=== PATIENT | female | born 1950 | race Hispanic/Latino ===

== ENCOUNTER 2019-01-09 21:51 | Emergency (ER) | payer MEDICARE ==
[~2019-01-09] VITALS: Ht 142.2 cm; Wt 75.3 kg
--- OUTSIDE RECORDS SUMMARY | 2019-01-09 21:53 | XMS REPORT ---
Author Author [facility] Address Unknown Phone Unavailable Care Team Providers Care Wildlife Removal Specialist Name Role Phone Unavailable Unavailable Payers Payer Name Policy Type Policy Number Effective Date Expiration Date Problems This patient has no known problems. Allergies, Adverse Reactions, Alerts Allergy Name Allergy Type Status Severity Reaction(s) Onset Date Inactive Date Treating Clinician Comments hydrocodone bit DA Active SV 2010-04-08 00:00:00 acetaminophen DA Active SV 2010-04-08 00:00:00 Medications This patient has no known medications. Results Test Description Test Time Test Comments Text Results Atomic Results Result Comments GLUBED 2018-12-20 23:06:00 GLUBED (test code=GLUBED) 179 mg/dL 74-106 Performed by certified collar shaper operator at [facility] COMPREHENSIVE METABOLIC [id number] 21:11:00* Test Item Value Reference Range Comments SODIUM (test code=NA) 136 mmol/L 136-145 POTASSIUM (test code=K) 3.8 mmol/L 3.5-5.1 CHLORIDE (test code=CL) 99.0 mmol/L 98-107 CARBON DIOXIDE (test code=CO2) 24.0 mmol/L 21-32 ANION GAP (test code=GAP) 16.8 10-20 GLUCOSE (test code=GLU) 231 mg/dL 74-106 BLOOD UREA NITROGEN (test code=BUN) 25 mg/dL 7-18 GLOMERULAR FILTRATION RATE (test code=GFR) 49 mL/min >=60 Estimated GFR by using Modified MDRD formula.Chronic kidney disease is defined as either kidney damageor GFR <60 mL/min/1.73 m2 for >3 months. CREATININE (test code=CREAT) 1.10 mg/dL 0.55-1.02 Note change in reference range due to change in reagent. BUN/CREATININE RATIO (test code=BUN/CREA) 22.1 10-20 TOTAL PROTEIN (test code=PROT) 7.4 gram/dL 6.4-8.2 ALBUMIN (test code=ALB) 3.3 g/dL 3.4-5.0 GLOBULIN (test code=GLOB) 4.1 gram/dL 2.7-4.2 ALBUMIN/GLOBULIN RATIO (test code=A/G) 0.8 0.75-1.50 CALCIUM (test code=CA) 9.4 mg/dL 8.5-10.1 BILIRUBIN TOTAL (test code=BILT) 0.40 mg/dL 0.0-1.0 SGOT/AST (test code=AST) 24 IUnit/L 15-37 SGPT/ALT (test code=ALT) 20 IUnit/L 12-78 ALKALINE PHOSPHATASE TOTAL (test code=ALKP) 93 IUnit/L 45-117 Note change in reference range due to change in reagent. [id number] 21:11:00* Test Item Value Reference Range Comments LIPASE (test code=LIP) 304 U/L 73.0-393.0 COMPREHENSIVE METABOLIC [id number] 20:55:00* Test Item Value Reference Range Comments SODIUM (test code=NA) 136 mmol/L 136-145 POTASSIUM (test code=K) 3.8 mmol/L 3.5-5.1 CHLORIDE (test code=CL) 99.0 mmol/L 98-107 CARBON DIOXIDE (test code=CO2) mmol/L 21-32 ANION GAP (test code=GAP) 10-20 GLUCOSE (test code=GLU) mg/dL 74-106 BLOOD UREA NITROGEN (test code=BUN) mg/dL 7-18 GLOMERULAR FILTRATION RATE (test code=GFR) mL/min >=60 CREATININE (test code=CREAT) mg/dL 0.55-1.02 BUN/CREATININE RATIO (test code=BUN/CREA) 10-20 TOTAL PROTEIN (test code=PROT) gram/dL 6.4-8.2 ALBUMIN (test code=ALB) g/dL 3.4-5.0 GLOBULIN (test code=GLOB) gram/dL 2.7-4.2 ALBUMIN/GLOBULIN RATIO (test code=A/G) 0.75-1.50 CALCIUM (test code=CA) mg/dL 8.5-10.1 BILIRUBIN TOTAL (test code=BILT) mg/dL 0.0-1.0 SGOT/AST (test code=AST) IUnit/L 15-37 SGPT/ALT (test code=ALT) IUnit/L 12-78 ALKALINE PHOSPHATASE TOTAL (test code=ALKP) IUnit/L 45-117 [id number] 20:55:00* Test Item Value Reference Range Comments LIPASE (test code=LIP) U/L 73.0-393.0 CBC W/AUTO [id number] 20:53:00* Test Item Value Reference Range Comments WHITE BLOOD CELL (test code=WBC) 14.5 K/mm3 4.5-12.5 RED BLOOD CELL (test code=RBC) 4.48 mill/mm3 3.7-5.2 HEMOGLOBIN (test code=HGB) 10.9 gram/dL 11.5-15.5 HEMATOCRIT (test code=HCT) 35.7 % 36.0-46.0 MEAN CELL VOLUME (test code=MCV) 79.7 fL 80-98 MEAN CELL HGB (test code=MCH) 24.3 picogram 27.0-33.0 MEAN CELL HGB CONCETRATION (test code=MCHC) 30.5 gram/dL 33.0-36.0 RED CELL DISTRIBUTION WIDTH (test code=RDW) 14.3 % 11.6-16.2 RED CELL DISTRIBUTION WIDTH SD (test code=RDW-SD) 41.0 fL 37.0-51.0 PLATELET COUNT (test code=PLT) 163 K/mm3 150-450 MEAN PLATELET VOLUME (test code=MPV) 10.8 fL 6.7-11.0 NEUTROPHIL % (test code=NT%) 85.5 % 39.0-69.0 IMMATURE GRANULOCYTE % (test code=IG%) 2.2 % 0.0-5.0 LYMPHOCYTE % (test code=LY%) 8.4 % 25.0-55.0 MONOCYTE % (test code=MO%) 2.8 % 0.0-10.0 EOSINOPHIL % (test code=EO%) 0.7 % 0.0-5.0 BASOPHIL % (test code=BA%) 0.4 % 0.0-1.0 NUCLEATED RBC % (test code=NRBC%) 0.0 % 0-0 NEUTROPHIL # (test code=NT#) 12.36 K/mm3 1.8-7.7 IMMATURE GRANULOCYTE # (test code=IG#) 0.32 x10 3/uL 0-0.03 LYMPHOCYTE # (test code=LY#) 1.22 K/mm3 1.0-5.0 MONOCYTE # (test code=MO#) 0.41 K/mm3 0-0.8 EOSINOPHIL # (test code=EO#) 0.10 K/mm3 0.0-0.5 BASOPHIL # (test code=BA#) 0.06 K/mm3 0.0-0.2 NUCLEATED RBC # (test code=NRBC#) 0.00 K/mm3 0.0-0.1 MANUAL DIFF REQUIRED (test code=MDIFF) NO, ONLY SCAN NEEDED DIFFERENTIAL [id number] 20:53:00* Test Item Value Reference Range Comments STAIN ACCEPTABILITY (test code=STN ACCEPTABLE) STAIN ACCEPTABLE POIKILOCYTOSIS (test code=POIK) 1+ ANISOCYTOSIS (test code=ANISO) 1+ MICROCYTOSIS (test code=MICR) 1+ PLATELET ESTIMATE (test code=PLTEST) ADEQUATE PLATELET MORPHOLOGY (test code=PLTMORPH) NORMAL [id number] 20:42:00* Test Item Value Reference Range Comments GLUBED (test code=GLUBED) 245 mg/dL 74-106 Performed by certified collar shaper operator at [facility] - XR CHEST 1 [id number] 20:40:00 FAX: Shanna Colvin [phone] [place]: B St: PRE Name: BERNIE LAU [facility] : [birth year] Age/S: 68/F Lety Giron Unit #: [id number] Loc: [place], [place] [address] Phys: Shanna Kelley MD Acct: [id number] Dis Date: Status: PRE ER PHONE #: [phone] Exam Date: 12/20/20182034 FAX #: [phone] Reason: fall, on plavix EXAMS: CPT CODE: [id number] XR CHEST 1 V [id number] EXAM: Chest x-ray, one view; INFORMATION: Status post fall, patient is on Plavix; FIND INGS: The heart is slightly enlarged. Lungs are clear; no infiltrate s, no edema; no contusion, no effusions; no pneumothorax. Aortic louisa cifications. IMPRESSION: 1. No acute cardiothoracic abno rmalities. 2. Mild cardiomegaly. Electronically Sig stacy by Kayley Moran on 12/20/2018 at 2039 Reported and signed by: Dick Moran M.D. CC: Shanna Kelley MD Technologist: CHRISSY ANDRADE RT; PATRICK VILLAREAL RT(R) Trnscrd Date/Time/By: 12/20/2018 (2039) : By: KarissaGRJenise Orig Print D/T: S: 0 12/20/2018 (2042) PAGE 1 Signed Re port CBC W/AUTO [id number] 20:36:00* Test Item Value Reference Range Comments WHITE BLOOD CELL (test code=WBC) 14.5 K/mm3 4.5-12.5 RED BLOOD CELL (test code=RBC) 4.48 mill/mm3 3.7-5.2 HEMOGLOBIN (test code=HGB) 10.9 gram/dL 11.5-15.5 HEMATOCRIT (test code=HCT) 35.7 % 36.0-46.0 MEAN CELL VOLUME (test code=MCV) 79.7 fL 80-98 MEAN CELL HGB (test code=MCH) 24.3 picogram 27.0-33.0 MEAN CELL HGB CONCETRATION (test code=MCHC) 30.5 gram/dL 33.0-36.0 RED CELL DISTRIBUTION WIDTH (test code=RDW) 14.3 % 11.6-16.2 RED CELL DISTRIBUTION WIDTH SD (test code=RDW-SD) 41.0 fL 37.0-51.0 PLATELET COUNT (test code=PLT) 163 K/mm3 150-450 MEAN PLATELET VOLUME (test code=MPV) 10.8 fL 6.7-11.0 NEUTROPHIL % (test code=NT%) 85.5 % 39.0-69.0 IMMATURE GRANULOCYTE % (test code=IG%) 2.2 % 0.0-5.0 LYMPHOCYTE % (test code=LY%) 8.4 % 25.0-55.0 MONOCYTE % (test code=MO%) 2.8 % 0.0-10.0 EOSINOPHIL % (test code=EO%) 0.7 % 0.0-5.0 BASOPHIL % (test code=BA%) 0.4 % 0.0-1.0 NUCLEATED RBC % (test code=NRBC%) 0.0 % 0-0 NEUTROPHIL # (test code=NT#) 12.36 K/mm3 1.8-7.7 IMMATURE GRANULOCYTE # (test code=IG#) 0.32 x10 3/uL 0-0.03 LYMPHOCYTE # (test code=LY#) 1.22 K/mm3 1.0-5.0 MONOCYTE # (test code=MO#) 0.41 K/mm3 0-0.8 EOSINOPHIL # (test code=EO#) 0.10 K/mm3 0.0-0.5 BASOPHIL # (test code=BA#) 0.06 K/mm3 0.0-0.2 NUCLEATED RBC # (test code=NRBC#) 0.00 K/mm3 0.0-0.1 MANUAL DIFF REQUIRED (test code=MDIFF) NO, ONLY SCAN NEEDED DIFFERENTIAL [id number] 20:36:00* Test Item Value Reference Range Comments STAIN ACCEPTABILITY (test code=STN ACCEPTABLE) CABOT RINGS (test code=CAB) MORPHOLOGY COMMENT (test code=MOC) PLATELET ESTIMATE (test code=PLTEST) PLATELET MORPHOLOGY (test code=PLTMORPH) CBC W/AUTO [id number] 20:36:00* Test Item Value Reference Range Comments WHITE BLOOD CELL (test code=WBC) 14.5 K/mm3 4.5-12.5 RED BLOOD CELL (test code=RBC) 4.48 mill/mm3 3.7-5.2 HEMOGLOBIN (test code=HGB) 10.9 gram/dL 11.5-15.5 HEMATOCRIT (test code=HCT) 35.7 % 36.0-46.0 MEAN CELL VOLUME (test code=MCV) 79.7 fL 80-98 MEAN CELL HGB (test code=MCH) 24.3 picogram 27.0-33.0 MEAN CELL HGB CONCETRATION (test code=MCHC) 30.5 gram/dL 33.0-36.0 RED CELL DISTRIBUTION WIDTH (test code=RDW) 14.3 % 11.6-16.2 RED CELL DISTRIBUTION WIDTH SD (test code=RDW-SD) 41.0 fL 37.0-51.0 PLATELET COUNT (test code=PLT) 163 K/mm3 150-450 MEAN PLATELET VOLUME (test code=MPV) 10.8 fL 6.7-11.0 NEUTROPHIL % (test code=NT%) 85.5 % 39.0-69.0 IMMATURE GRANULOCYTE % (test code=IG%) 2.2 % 0.0-5.0 LYMPHOCYTE % (test code=LY%) 8.4 % 25.0-55.0 MONOCYTE % (test code=MO%) 2.8 % 0.0-10.0 EOSINOPHIL % (test code=EO%) 0.7 % 0.0-5.0 BASOPHIL % (test code=BA%) 0.4 % 0.0-1.0 NUCLEATED RBC % (test code=NRBC%) 0.0 % 0-0 NEUTROPHIL # (test code=NT#) 12.36 K/mm3 1.8-7.7 IMMATURE GRANULOCYTE # (test code=IG#) 0.32 x10 3/uL 0-0.03 LYMPHOCYTE # (test code=LY#) 1.22 K/mm3 1.0-5.0 MONOCYTE # (test code=MO#) 0.41 K/mm3 0-0.8 EOSINOPHIL # (test code=EO#) 0.10 K/mm3 0.0-0.5 BASOPHIL # (test code=BA#) 0.06 K/mm3 0.0-0.2 NUCLEATED RBC # (test code=NRBC#) 0.00 K/mm3 0.0-0.1 MANUAL DIFF REQUIRED (test code=MDIFF) NO, ONLY SCAN NEEDED DIFFERENTIAL [id number] 20:36:00* Test Item Value Reference Range Comments STAIN ACCEPTABILITY (test code=STN ACCEPTABLE) MORPHOLOGY COMMENT (test code=MOC) PLATELET ESTIMATE (test code=PLTEST) PLATELET MORPHOLOGY (test code=PLTMORPH) CBC W/AUTO [id number] 20:36:00* Test Item Value Reference Range Comments WHITE BLOOD CELL (test code=WBC) 14.5 K/mm3 4.5-12.5 RED BLOOD CELL (test code=RBC) 4.48 mill/mm3 3.7-5.2 HEMOGLOBIN (test code=HGB) 10.9 gram/dL 11.5-15.5 HEMATOCRIT (test code=HCT) 35.7 % 36.0-46.0 MEAN CELL VOLUME (test code=MCV) 79.7 fL 80-98 MEAN CELL HGB (test code=MCH) 24.3 picogram 27.0-33.0 MEAN CELL HGB CONCETRATION (test code=MCHC) 30.5 gram/dL 33.0-36.0 RED CELL DISTRIBUTION WIDTH (test code=RDW) 14.3 % 11.6-16.2 RED CELL DISTRIBUTION WIDTH SD (test code=RDW-SD) 41.0 fL 37.0-51.0 PLATELET COUNT (test code=PLT) 163 K/mm3 150-450 MEAN PLATELET VOLUME (test code=MPV) 10.8 fL 6.7-11.0 NEUTROPHIL % (test code=NT%) 85.5 % 39.0-69.0 IMMATURE GRANULOCYTE % (test code=IG%) 2.2 % 0.0-5.0 LYMPHOCYTE % (test code=LY%) 8.4 % 25.0-55.0 MONOCYTE % (test code=MO%) 2.8 % 0.0-10.0 EOSINOPHIL % (test code=EO%) 0.7 % 0.0-5.0 BASOPHIL % (test code=BA%) 0.4 % 0.0-1.0 NUCLEATED RBC % (test code=NRBC%) 0.0 % 0-0 NEUTROPHIL # (test code=NT#) 12.36 K/mm3 1.8-7.7 IMMATURE GRANULOCYTE # (test code=IG#) 0.32 x10 3/uL 0-0.03 LYMPHOCYTE # (test code=LY#) 1.22 K/mm3 1.0-5.0 MONOCYTE # (test code=MO#) 0.41 K/mm3 0-0.8 EOSINOPHIL # (test code=EO#) 0.10 K/mm3 0.0-0.5 BASOPHIL # (test code=BA#) 0.06 K/mm3 0.0-0.2 NUCLEATED RBC # (test code=NRBC#) 0.00 K/mm3 0.0-0.1 MANUAL DIFF REQUIRED (test code=MDIFF) NO, ONLY SCAN NEEDED DIFFERENTIAL [id number] 20:36:00* Test Item Value Reference Range Comments STAIN ACCEPTABILITY (test code=STN ACCEPTABLE) MORPHOLOGY COMMENT (test code=MOC) PLATELET ESTIMATE (test code=PLTEST) PLATELET MORPHOLOGY (test code=PLTMORPH) CBC W/AUTO [id number] 20:36:00* Test Item Value Reference Range Comments WHITE BLOOD CELL (test code=WBC) 14.5 K/mm3 4.5-12.5 RED BLOOD CELL (test code=RBC) 4.48 mill/mm3 3.7-5.2 HEMOGLOBIN (test code=HGB) 10.9 gram/dL 11.5-15.5 HEMATOCRIT (test code=HCT) 35.7 % 36.0-46.0 MEAN CELL VOLUME (test code=MCV) 79.7 fL 80-98 MEAN CELL HGB (test code=MCH) 24.3 picogram 27.0-33.0 MEAN CELL HGB CONCETRATION (test code=MCHC) 30.5 gram/dL 33.0-36.0 RED CELL DISTRIBUTION WIDTH (test code=RDW) 14.3 % 11.6-16.2 RED CELL DISTRIBUTION WIDTH SD (test code=RDW-SD) 41.0 fL 37.0-51.0 PLATELET COUNT (test code=PLT) 163 K/mm3 150-450 MEAN PLATELET VOLUME (test code=MPV) 10.8 fL 6.7-11.0 NEUTROPHIL % (test code=NT%) 85.5 % 39.0-69.0 IMMATURE GRANULOCYTE % (test code=IG%) 2.2 % 0.0-5.0 LYMPHOCYTE % (test code=LY%) 8.4 % 25.0-55.0 MONOCYTE % (test code=MO%) 2.8 % 0.0-10.0 EOSINOPHIL % (test code=EO%) 0.7 % 0.0-5.0 BASOPHIL % (test code=BA%) 0.4 % 0.0-1.0 NUCLEATED RBC % (test code=NRBC%) 0.0 % 0-0 NEUTROPHIL # (test code=NT#) 12.36 K/mm3 1.8-7.7 IMMATURE GRANULOCYTE # (test code=IG#) 0.32 x10 3/uL 0-0.03 LYMPHOCYTE # (test code=LY#) 1.22 K/mm3 1.0-5.0 MONOCYTE # (test code=MO#) 0.41 K/mm3 0-0.8 EOSINOPHIL # (test code=EO#) 0.10 K/mm3 0.0-0.5 BASOPHIL # (test code=BA#) 0.06 K/mm3 0.0-0.2 NUCLEATED RBC # (test code=NRBC#) 0.00 K/mm3 0.0-0.1 MANUAL DIFF REQUIRED (test code=MDIFF) NO, ONLY SCAN NEEDED DIFFERENTIAL [id number] 20:36:00* Test Item Value Reference Range Comments STAIN ACCEPTABILITY (test code=STN ACCEPTABLE) CABOT RINGS (test code=CAB) MORPHOLOGY COMMENT (test code=MOC) PLATELET ESTIMATE (test code=PLTEST) PLATELET MORPHOLOGY (test code=PLTMORPH) - CT C-SPINE W/O [id number] 20:27:00 Name: BERNIE DALTON [facility] : 1950 Age/S: 68 / F [address] [facility] Unit #: [id number] Loc: [place] [address] Phys: Shanna Kelley MD Acct: [id number] Dis Date: Status: PRE ER PHONE #: [phone] Exam Date: 12/20/20182009 FAX #: [phone] Reason: fall, on plavix EXAMS: CPT CODE: [id number] CT C-SPINE W/O CONTRAST [id number] EXAM: CT of the cervical spine without contrast; INFORMATION: Status post fall; patient is on Plavix; TECHNIQUE AND FINDINGS: CT dose reduction protocol; 2.5 mm axial scans; sagittal and coronal reconstructions. There is good alignment of the cervical spine; vertebral bodies, the dens and posterior elements are intact; no evidence of fracture or dislocation. Normal height of intervertebral discs. Anterior osteophytes and calcifications and ossifications of the anterior longitudinal ligament in the mid cervical spine. Paravertebral soft tissues are unremarkable. C alcifications of carotid and vertebral arteries. IMPRESSION: 1. No evidence of acute osseous trauma. 2. Spondylosis. at 2026 Reported and signed by: Dick Moran M.D. CC: Shanna Kelley MD Technologist:HARPER BAILEY RT; Eliu, CTDI: DLP: Trnscb Date/Time: 12/20/2018 (2026) [email or web address] Orig Print D/T: S: 12/20/2018 (2029) CTDI: DLP: PAGE 1 Signed Report - CT HEAD/BRAIN W/O [id number] 20:24:00 Name: BERNIE DALTON [facility] : 1950 Age/S: 68 / F [address] [facility] Unit #: [id number] Loc: [place] [address] Phys: Shanna Kelley MD Acct: [id number] Dis Date: Status: PRE ER PHONE #: [phone] Exam Date: 12/20/20182009 FAX #: [phone] Reason: fall, on plavix EXAMS: CPT CODE: [id number] CT HEAD/BRAIN W/O CONT [id number] EXAM: CT of the head without contrast; INFORMATION: Status post fall; patient is on Plavix; TECHNIQUE AND FINDINGS: CT dose reduction protocol; 2.5 mm axial scans. There is no evidence of intra or extra-axial hemorrhage, mass lesions or midline shift. Periventricular and deep white matter hypodensities; otherwise, unremarkable maher/white matter differentiation. Ventricles are symmetric and are moderately dilated. Slightly prominent sulci and basilar cisterns. The calvarium is intact. Mucoid retention cyst in the left maxillary sinus. The remainder of the sinuses and mastoid air cells are well aerated. IMPRESSION: 1. No evidence of intracranial hemorrhage or acute territorial infarction. 2. Chronic ischemic white matter changes and mild atrophy. 3. No evidence of skull fracture. at 2023 Reported and signed by: Dick Moran M.D. CC: Shanna Kelley MD Technologist:HARPER BAILEY RT; Eliu, CTDI: DLP: Trnscb Date/Time: 12/20/2018 (2023) [email or web address] Orig Print D/T: S: 12/20/2018 (2026) CTDI: DLP: PAGE 1 Signed Report
--- NOTE | 2019-01-10 00:41 | NUR ---
PT LEFT FOOT/ANKLE MORE SWOLLEN AND INCREASED ERYTHEMA, WARM TO TOUCH. NOTIFIED DR. LOVE, VENOUS DOPPLER ORDERED, [employer] NOTIFIED
--- NOTE | 2019-01-10 01:45 | NUR ---
PT TRANSPORTED FOR VENOUS DOPPLER
--- NOTE | 2019-01-10 03:40 | NUR ---
patient has left swelling to ankle, warm to the touch, slight redness noted, doppler negative. besides this finding, all systems within normal limits
[2019-01-10] MEDS ORDERED: KETOROLAC TROMETHAMINE 60 MG/2 ML VIAL IM ONE (04:15)
[2019-01-10] MEDS ORDERED: CEPHALEXIN 500 MG CAP PO ONE (04:15)
--- NOTE | 2019-01-10 04:50 | Diagnostic Imaging Report ---
Exam: Left foot and ankle 3 views each History: Pain Comparison: None. Findings: No fracture or malalignment. Joint spaces preserved. Dorsal and plantar calcaneal enthesophytes. Vascular calcifications. Impression: No acute osseous abnormality Signed by: Dr. Everette Arechiga M.D. on 01/10/2019 4:47 AM
[2019-01-10] MEDS ORDERED: KETOROLAC TROMETHAMINE 30 MG/ML VIAL IM STA (05:00)
[2019-01-10] MEDS ORDERED: KETOROLAC TROMETHAMINE 30 MG/ML VIAL IV STA (05:24)
[2019-01-10] MEDS ORDERED: KEFLEX500 MG PO (05:58)
== END 2019-01-10 07:30 | disposition home or self-care (01) ==
LOC: ER 21:51
DX: M25.572 Pain in left ankle and joints of left foot (principal); I10 Essential (primary) hypertension; E11.9 Type 2 diabetes mellitus without complications; N18.9 Chronic kidney disease, unspecified; I25.10 Atherosclerotic heart disease of native coronary artery without angina pectoris; E78.5 Hyperlipidemia, unspecified
CPT/HCPCS: 73610; 73630; 93971; 99283; J1885

== ENCOUNTER → 2019-04-17 | Outpatient (CLI) | payer MEDICARE ==
[~2019-04-17] MED LIST: KEFLEX500 MG PO
--- NOTE | 2019-04-17 14:04 | Diagnostic Imaging Report ---
EXAM: Renal Ultrasound INDICATION: Urinary tract infection. COMPARISON: None TECHNIQUE: Transverse and longitudinal images of the kidneys and bladder were obtained. FINDINGS: Right Kidney: Length: Measures 10.2 x 5.1 x 5.8 cm Appearance: Normal echogenicity. Collecting system: Mild hydronephrosis. Stones: None Cyst/Mass: There is a 1.0 cm echogenic solid lesion within the right upper pole which contains punctate calcifications. Punctate Doppler flow internally may represent twinkle artifact versus vascular flow. Left Kidney: Length: Measures 10.7 x 4.4 x 4.0 cm Appearance: Normal echogenicity. Collecting system: Mild hydronephrosis. Stones: There are punctate echogenic foci, consistent with stones, measuring up to 4 mm and 3 mm in the lower pole. Cyst/Mass: None Bladder: Unremarkable in appearance. The prevoid volume is 28.5 cc. IMPRESSION: An indeterminate 1.0 cm echogenic lesion within the right upper pole with associated calcifications. Suggest renal protocol CT for further evaluation. Mild bilateral hydronephrosis. Nonobstructing left-sided 3 to 4 mm renal stones. Signed by: Dr. Ron Doe MD on 04/17/2019 2:01 PM
== END ==
LOC: US 12:45
PROVIDERS: ATTEND Urology
DX: N39.0 Urinary tract infection, site not specified (principal)
CPT/HCPCS: 76770

== ENCOUNTER 2019-04-27 20:35 | Emergency (ER) | payer MEDICARE ==
[~2019-04-27] VITALS: Ht 142.2 cm; Wt 75.3 kg
== END 2019-04-27 20:50 | disposition left against medical advice (07) ==
LOC: ER 20:35
DX: I95.9 Hypotension, unspecified (principal); E11.22 Type 2 diabetes mellitus with diabetic chronic kidney disease; I12.9 Hypertensive chronic kidney disease with stage 1 through stage 4 chronic kidney disease, or unspecified chronic kidney disease; N18.9 Chronic kidney disease, unspecified; E78.5 Hyperlipidemia, unspecified; I25.10 Atherosclerotic heart disease of native coronary artery without angina pectoris; I25.2 Old myocardial infarction; Z88.5 Allergy status to narcotic agent

== ENCOUNTER → 2019-04-30 | Outpatient (CLI) | payer MEDICARE ==
[~2019-04-30] MED LIST changes: +IOPAMIDOL 370 MG/ML 200 ML INFUS..BTL INJ ONE; +SODIUM CHLORIDE 0.9% 500ML 500 ML ONE; +SODIUM CHLORIDE 0.9% 50ML 50 ML ONE
[2019-04-30 13:52] LABS: CREATININE, SERUM 1.12 mg/dL (0.57-1.11)
--- NOTE | 2019-04-30 15:56 | Diagnostic Imaging Report ---
EXAM: CT Abdomen and Pelvis WITH intravenous contrast -renal mass protocol INDICATION: Flank pain. COMPARISON: Renal ultrasound of 04/17/2019 TECHNIQUE: Abdomen and pelvis were scanned utilizing a multidetector helical scanner from the lung base to the pubic symphysis before and after administration of IV contrast in the arterial and delayed phases. Coronal and sagittal reformations were obtained. Routine protocol was performed. Scan was performed when during portal venous phase. IV CONTRAST: 100 mL of Isovue-370 ORAL CONTRAST: None COMPLICATIONS: None RADIATION DOSE: Total DLP: 1681.5 mGy*cm Dose modulation, iterative reconstruction, and/or weight based adjustment of the mA/kV was utilized to reduce the radiation dose to as low as reasonably achievable. FINDINGS: LOWER THORAX: No focal consolidation at the lung bases. Scattered calcified granulomas. No pleural effusion. Minimal lower lobe subsegmental atelectasis. Atherosclerotic calcifications of the coronary arteries. HEPATOBILIARY: No focal hepatic lesions. No biliary ductal dilatation. The gallbladder appears unremarkable. SPLEEN: No splenomegaly. PANCREAS: No focal masses or ductal dilatation. ADRENALS: Mild diffuse thickening of the adrenal glands without discrete nodule. KIDNEYS/URETERS: No renal calculi or hydronephrosis. Approximately 6 mm hypodense right upper pole structure is too small to definitively characterize but likely represents a cyst. The structure seen on prior renal ultrasound of the right renal upper pole was likely artifactual. Delayed phase excretory images demonstrate opacification of nearly the entire course of the ureters. No filling defect to suggest urothelial lesion. PELVIC ORGANS/BLADDER: The bladder opacifies with contrast on delayed phases. No wall thickening, mass lesion, or calculi. PERITONEUM / RETROPERITONEUM: No free air or fluid. LYMPH NODES: No lymphadenopathy. VESSELS: Atherosclerotic calcifications of the nonaneurysmal abdominal aorta and major branches. GI TRACT: There is extensive sigmoid colonic diverticulosis with no CT evidence of diverticulitis. No abnormal bowel wall thickening. No bowel obstruction. Normal appendix. BONES AND SOFT TISSUES: No acute osseous injury. Mild degenerative changes of the visualized spine. IMPRESSION: The right upper pole 1 cm structure seen on prior renal ultrasound is not seen on today's study and may have been artifactual. A 6 mm hypodense right upper pole focus is too small to definitively characterize but likely represents a cyst. No renal calculi, hydronephrosis, or other solid mass lesion. No evidence of urothelial or bladder lesion. No bladder calculi. Extensive vascular atherosclerotic calcifications including coronary artery calcifications. Signed by: Bryan Ashley MD on 04/30/2019 3:52 PM
== END ==
LOC: CT 12:39
PROVIDERS: ATTEND Urology
DX: D41.00 Neoplasm of uncertain behavior of unspecified kidney (principal)
CPT/HCPCS: 36415; 74170; 82565; 84520; 96360; J7040; Q9967

== ENCOUNTER → 2019-11-28 | Outpatient (CLI) | payer MEDICARE ==
[~2019-11-28] MED LIST changes: -IOPAMIDOL 370 MG/ML 200 ML INFUS..BTL INJ ONE; -SODIUM CHLORIDE 0.9% 500ML 500 ML ONE; -SODIUM CHLORIDE 0.9% 50ML 50 ML ONE
== END ==
LOC: RAD 14:52
PROVIDERS: ATTEND Podiatrist Foot & Ankle Surgery
DX: I82.492 Acute embolism and thrombosis of other specified deep vein of left lower extremity (principal)
CPT/HCPCS: 93971

== ENCOUNTER → 2019-12-02 | Outpatient (CLI) | payer MEDICARE ==
--- NOTE | 2019-12-02 15:37 | Diagnostic Imaging Report ---
EXAM: Renal Ultrasound INDICATION: ^URINARY TRACT INFECTION / CYST OF KIDNEY COMPARISON: CT abdomen pelvis of 04/30/2019 TECHNIQUE: Transverse and longitudinal images of the kidneys and bladder were obtained. FINDINGS: Right Kidney: Length: 10.5 cm Appearance: Normal echogenicity. Collecting system: No hydronephrosis Stones: None Cyst/Mass: None Left Kidney: Length: 11.6 cm Appearance: Normal echogenicity. Collecting system: No hydronephrosis Stones: None Cyst/Mass: None Bladder: Distended bladder. Weak ureteral jets seen. No mass or calculi. Prevoid volume estimate of 543cc. IMPRESSION: No hydronephrosis or renal calculi. Distended bladder. Signed by: Bryan Ashley MD on 12/02/2019 3:35 PM
== END ==
LOC: US 13:51
PROVIDERS: ATTEND Urology
DX: N39.0 Urinary tract infection, site not specified (principal); N28.1 Cyst of kidney, acquired
CPT/HCPCS: 76770

== ENCOUNTER 2020-10-07 16:36 | Observation (INO) | payer MEDICARE ==
[~2020-10-07] VITALS: Ht 142.2 cm; Wt 74.0 kg
[2020-10-07] MEDS ORDERED: SODIUM CHLORIDE 0.9% 1000ML 1,000 ML IV ONE ×2 (19:00→22:45)
[2020-10-07 19:28] LABS: BASOPHILS % 0.2 % (0.0-1.0); EOSINOPHILS % 0.5 % (0.0-6.0); HEMATOCRIT 27.3 % (34.2-44.1); HEMOGLOBIN 9.1 g/dL (12.0-16.0); LYMPHOCYTES # (AUTO) 1.2 (1.0-3.2); LYMPHOCYTES % 19.2 % (18.0-39.1); MEAN CORPUSCULAR HEMOGLOBIN 29.2 pg (28-32); MEAN CORPUSCULAR HGB CONC 33.3 g/dL (31-35); MEAN CORPUSCULAR VOLUME 87.5 fL (81-99); MONOCYTES # (AUTO) 0.5 (0.2-0.8); MONOCYTES % 8.5 % (4.4-11.3); NEUTROPHILS # (AUTO) 4.3 (2.1-6.9); NEUTROPHILS % 70.9 % (38.7-80.0); PLATELET COUNT 137 x10e3/uL (140-360); RED BLOOD COUNT 3.12 x10e6/uL (3.6-5.1); RED CELL DISTRIBUTION WIDTH 14.9 % (11.7-14.4)
[2020-10-07 19:46] LABS: ALBUMIN 3.2 g/dL (3.5-5.0); ALBUMIN/GLOBULIN RATIO 0.9 (0.8-2.0); ANION GAP 15.9 mmol/L (8-16); CALCIUM 8.9 mg/dL (8.4-10.2); CREATININE, SERUM 2.92 mg/dL (0.57-1.11); POTASSIUM 4.9 mmol/L (3.5-5.1)
[2020-10-07 19:57] LABS: AMYLASE 121 U/L (25-125); LIPASE 130 U/L (8-78)
[2020-10-07 21:25] LABS: CLARITY,URINE SL CLOUDY (CLEAR); COLOR,URINE YELLOW (YELLOW); LEUKOCYTE ESTERASE ,URINE SMALL (NEGATIVE); NITRITE,URINE NEGATIVE (NEGATIVE); PROTEIN,URINE DIPSTICK 2+ (NEGATIVE)
[2020-10-07 21:26] LABS: KETONES,URINE NEGATIVE (NEGATIVE); URINE UROBILINOGEN 0.2 mg/dL (0.2 - 1)
[2020-10-07 21:41] LABS: BACTERIA,URINE MANY /HPF; EPITHELIAL CELLS,URINE MODERATE /LPF; WBC,URINE (MAN) 21-50 /HPF (0-5)
[2020-10-07] MEDS ORDERED: CEFTRIAXONE SOD 1 GM/NS 50 ML 50 ML IV SCH (22:00)
[2020-10-07] MEDS ORDERED: ONDANSETRON HCL INJ 2MG/ML 2ML 2 MG/ML VIAL IV PRN (22:45)
[2020-10-07] MEDS ORDERED: ACETAMINOPHEN 325 MG TAB PO PRN (23:15)
[2020-10-08 00:58] VITALS: BP 147/64
[2020-10-08] MEDS ORDERED: SERTRALINE HCL50 MG PO (01:44)
[2020-10-08] MEDS ORDERED: SPIRONOLACTONE25 MG PO (01:44)
[2020-10-08] MEDS ORDERED: CYCLOBENZAPRINE10 MG PO (01:44)
[2020-10-08] MEDS ORDERED: CLOPIDOGREL75 MG PO (01:44)
[2020-10-08] MEDS ORDERED: ATORVASTATIN CA40 MG PO (01:44)
[2020-10-08] MEDS ORDERED: METOLAZONE5 MG PO (01:44)
[2020-10-08] MEDS ORDERED: CARVEDILOL25 MG PO (01:44)
[2020-10-08] MEDS ORDERED: TIZANIDINE HCL2 MG PO (01:44)
[2020-10-08] MEDS ORDERED: METFORMIN HCL500 MG PO (01:44)
[2020-10-08] MEDS ORDERED: PANTOPRAZOLE SO40 MG PO (01:44)
[2020-10-08] MEDS ORDERED: HYDRALAZINE HCL25 MG PO (01:44)
[2020-10-08] MEDS ORDERED: LANTUS 3ML100 UNITS/ SQ ×2 (01:44→02:20)
[2020-10-08] MEDS ORDERED: HUMALOG100 UNIT/1 SQ (01:44)
[2020-10-08] MEDS ORDERED: AMLODIPINE BESY10 MG PO (01:44)
[2020-10-08] MEDS ORDERED: INDAPAMIDE1.25 MG PO (01:44)
[2020-10-08 01:51] VITALS: BP 147/64
[2020-10-08 04:00] VITALS: BP 149/63
[2020-10-08 06:31] LABS: BASOPHILS % 0.2 % (0.0-1.0); EOSINOPHILS % 0.8 % (0.0-6.0); HEMATOCRIT 26.1 % (34.2-44.1); HEMOGLOBIN 8.6 g/dL (12.0-16.0); LYMPHOCYTES # (AUTO) 1.2 (1.0-3.2); LYMPHOCYTES % 23.2 % (18.0-39.1); MEAN CORPUSCULAR HEMOGLOBIN 29.5 pg (28-32); MEAN CORPUSCULAR VOLUME 89.4 fL (81-99); MONOCYTES # (AUTO) 0.5 (0.2-0.8); NEUTROPHILS # (AUTO) 3.3 (2.1-6.9); PLATELET COUNT 139 x10e3/uL (140-360); RED BLOOD COUNT 2.92 x10e6/uL (3.6-5.1); RED CELL DISTRIBUTION WIDTH 14.8 % (11.7-14.4)
[2020-10-08 07:03] LABS: ALBUMIN 2.8 g/dL (3.5-5.0); ALBUMIN/GLOBULIN RATIO 0.8 (0.8-2.0); ANION GAP 16.1 mmol/L (8-16); CALCIUM 8.4 mg/dL (8.4-10.2); CREATININE, SERUM 2.12 mg/dL (0.57-1.11); POTASSIUM 4.1 mmol/L (3.5-5.1)
[2020-10-08 08:07] VITALS: BP 135/61
[2020-10-08 08:09] VITALS: BP 135/61
[2020-10-08] MEDS ORDERED: DEXTROSE 50% SYRINGE 50 ML IV PRN (09:00)
[2020-10-08] MEDS ORDERED: ZINC SULFATE 220 MG CAP PO SCH (10:00)
[2020-10-08] MEDS ORDERED: ASCORBIC ACID 500 MG TAB PO SCH (10:00)
[2020-10-08] MEDS ORDERED: CLOPIDOGREL BISULFATE 75 MG TAB PO SCH (10:00)
[2020-10-08] MEDS ORDERED: INSULIN REGULAR, HUMAN 100 UNIT/1 ML 3ML VIAL SQ SCH (11:30)
[2020-10-08 12:50] VITALS: BP 139/56
== END 2020-10-08 15:02 | disposition home or self-care (01) ==
LOC: ER 18:59 → ERHOLD 22:41 → MED/SURG2 10-08 01:05
PROVIDERS: ADMIT Family Medicine; ATTEND Family Medicine
DX: U07.1 COVID-19 (principal); A08.39 Other viral enteritis; E87.2 Acidosis; E87.1 Hypo-osmolality and hyponatremia; I25.10 Atherosclerotic heart disease of native coronary artery without angina pectoris; E11.9 Type 2 diabetes mellitus without complications; E86.0 Dehydration; I10 Essential (primary) hypertension; N17.9 Acute kidney failure, unspecified
CPT/HCPCS: 36415 ×2; 71045; 80053 ×2; 81001; 82150; 82948; 83690; 85025 ×2; 87086; 87186; 99284; G0378 ×2; J0696; J1817; J2405; J7030; U0002

== ENCOUNTER 2020-10-18 17:17 | Emergency (ER) | payer MEDICARE ==
[~2020-10-18] VITALS: Ht 142.2 cm; Wt 73.9 kg
[~2020-10-18 17:17] MED LIST changes: +AMLODIPINE BESY10 MG PO; +ATORVASTATIN CA40 MG PO; +CARVEDILOL25 MG PO; +CLOPIDOGREL75 MG PO; +CYCLOBENZAPRINE10 MG PO; +HUMALOG100 UNIT/1 SQ; +HYDRALAZINE HCL25 MG PO; +INDAPAMIDE1.25 MG PO; +LANTUS 3ML100 UNITS/ SQ; +METFORMIN HCL500 MG PO; +METOLAZONE5 MG PO; +PANTOPRAZOLE SO40 MG PO; +SERTRALINE HCL50 MG PO; +SPIRONOLACTONE25 MG PO; +TIZANIDINE HCL2 MG PO
== END 2020-10-18 17:50 | disposition home or self-care (01) ==
LOC: ER 17:45
DX: U07.1 COVID-19 (principal); R06.02 Shortness of breath; R05 Cough; I10 Essential (primary) hypertension; E11.9 Type 2 diabetes mellitus without complications; E78.5 Hyperlipidemia, unspecified; I25.10 Atherosclerotic heart disease of native coronary artery without angina pectoris; I25.2 Old myocardial infarction
CPT/HCPCS: 99282